=== PATIENT | female | born 1970 | race Caucasian/White ===

== ENCOUNTER 2016-06-16 13:31 | Emergency (ER) | payer OTHER ==
[~2016-06-16 13:31] MED LIST: AUGMENTIN PO; DOXYCYCLINE PO; FLONASE16 GM; LEXAPRO5 MG PO; NAPROXEN PO; NASONEX17 GM; [UNRECOGNIZED DRUG - OTHER] PO
[2016-06-16 14:12] LABS: URINE SOURCE CLEAN CATCH
[2016-06-16 14:14] LABS: URINE APPEARANCE HAZY; URINE BILIRUBIN NEG (NEG); URINE BLOOD NEG (NEG); URINE COLOR YELLOW; URINE GLUCOSE NEG (NORM); URINE KETONE NEG (NEG); URINE LEUKOCYTE ESTERASE NEG (NEG); URINE NITRATE NEG (NEG); URINE PH 6.5 (5-8); URINE PROTEIN 1+ (NEG); URINE UROBILINOGEN 0.2 MG/DL (NORM)
[2016-06-16 14:15] LABS: MICRO INDICATED? YES
[2016-06-16 14:26] LABS: URINE RBC 0-2 /[HPF] (0-2)
[2016-06-16 14:27] LABS: URINE BACTERIA 2+ (NEG); URINE MUCUS PRESENT; URINE SQUAMOUS EPITHELIAL CELL MANY /[HPF]; URINE YEAST PRESENT
== END 2016-06-16 14:31 | disposition home or self-care (01) ==
LOC: SED 13:31
PROVIDERS: Emergency Medicine
DX: K29.00 Acute gastritis without bleeding (principal); F41.9 Anxiety disorder, unspecified; F17.200 Nicotine dependence, unspecified, uncomplicated
CPT/HCPCS: 81003; 84703; 99284